=== PATIENT | female | born 1980 | race Caucasian/White ===

== ENCOUNTER 2018-10-12 09:48 | Inpatient (IN) ==
[2018-10-12] MEDS ORDERED: Morphine Inj 4 MG/ML Vial IV.PUSH ONE ×2 (10:20→15:15)
[2018-10-12] MEDS ORDERED: Sod Chloride 0.9% Inj 1,000 ML IV.SIG ONE (10:20)
--- NOTE | 2018-10-12 10:23 | ED ---
HPI General Chief Complaint: Abdominal Pain Stated Complaint: Chest Pain Time Seen by Provider: 10/12/18 10:14 Source: patient Mode of arrival: ambulatory Limitations: no limitations History of Present Illness HPI narrative: 38-year-old female presents for evaluation of 4 days of epigastric burning and nausea. Patient states that she is feels a burning in her epigastrium which radiates to her chest particularly with burping. She has had minimal p.o. intake over the past 4 days. MD complaint: Reports abdominal pain Onset (ago): day(s) (4) Pain Consistency: constant Location: Reports epigastric Severity: severe Quality: Reports stabbing Radiation: Reports chest Migration to: Reports no migration Relieving factors: nothing Exacerbating factors: eating Context: Denies sick contacts, recent antibiotic use, recent surgery/procedure, recent injury and history of similar episodes Associated symptoms: Reports nausea and vomiting; Denies diarrhea, fever, chills and constipation Related Data Home Medications Medication Instructions Recorded Confirmed No Known Home Medications 10/12/18 10/12/18 Allergies Allergy/AdvReac Type Severity Reaction Status Date / Time acetaminophen AdvReac Intermediate Nausea/Vomi Verified 05/26/18 16:36 ting *MDRO Multi-Drug Resistant AdvReac Unknown MRSA Uncoded 05/26/18 16:36 Organism Review of Systems ROS: all other systems reviewed are negative [facility] Social History Social History Substance History: Active Abuse Second Hand Smoke Exposure: Yes Smoking Status: Current every day smoker Tobacco Type: Cigarettes How Often Do You Have a Drink Containing Alcohol: Monthly or less Recent Travel in [facility] within the Last 8 Weeks: No Recent Out of Country Travel within the Last 8 Weeks: No Substance Abuse Detail Marijuana: Substance Use Status: Active Route Used Substance Abuse: By Mouth and Inhalation Immunization History Tetanus Immunization: Unsure Exam Narrative Exam Narrative: GENERAL: Awake, alert, and pain SKIN: Focused skin assessment warm/dry. HEAD: Atraumatic. Normocephalic. EYES: Pupils equal and round. No scleral icterus. No injection or drainage. ENT: No nasal bleeding or discharge. Mucous membranes pink and moist. NECK: Trachea midline. No JVD. CARDIOVASCULAR: Regular rate and rhythm. No murmur appreciated. RESPIRATORY: No accessory muscle use. Clear to auscultation. Breath sounds equal bilaterally. GASTROINTESTINAL: Abdomen soft, tender to palpation in right upper quadrant and epigastrium, nondistended. Hepatic and splenic margins not palpable. MUSCULOSKELETAL: No obvious deformities. No clubbing. No cyanosis. No edema. NEUROLOGICAL: Awake and alert. No obvious cranial nerve deficits. Motor grossly within normal limits. Normal speech. PSYCHIATRIC: Appropriate mood and affect; insight and judgment normal. Course Initial Documented Vital Signs Temperature 98.1 F 10/12/18 09:50 Pulse Rate 80 10/12/18 09:50 Respiratory Rate 22 10/12/18 09:50 Blood Pressure 136/84 10/12/18 09:50 Pulse Oximetry 100 10/12/18 09:50 Last Documented Vital Signs Temperature 98.1 F 10/12/18 09:50 Pulse Rate 76 10/12/18 09:53 Respiratory Rate 16 10/12/18 09:53 Blood Pressure 140/87 10/12/18 09:53 Pulse Oximetry 100 10/12/18 09:53 Medical Decision Making [facility] Narrative Medical decision making narrative: 38-year-old female presents for evaluation of epigastric pain, nausea, inability to tolerate p.o for 4 days. Patient tender to palpation in the right upper quadrant. Symptoms could represent pancreatitis, cholecystitis, hepatitis. We will check right upper quadrant ultrasound, LFTs, CBC, BMP. Total bilirubin elevated at 6.1. AST elevated at 516, ALT 1052. Patient with persistent nausea and unable to tolerate p.o. Will admit to medicine. Medical Screen Exam Complete: Yes Emergency Medical Condition: Yes Lab Data Result diagrams: 10/12/18 10:45 10/12/18 10:45 POC Results POC Urine Results Negative Lab Results 10/12/18 10/12/18 Range/Units 10:45 10:45 WBC 8.4 (4.0-11.0) th/mm3 RBC 4.79 (4.00-5.30) mil/mm3 Hgb 9.5 L (11.6-15.3) gm/dL Hct 30.0 L (35.0-46.0) % MCV 62.7 L (80.0-100.0) fL MCH 19.9 L (27.0-34.0) pg MCHC 31.8 L (32.0-36.0) % RDW 20.6 H (11.6-17.2) % Plt Count 399 (150-450) th/mm3 MPV 9.5 (7.0-11.0) fL Prelim Diff (Auto) Manual diff required WBC Differential Manual diff final Seg Neuts % (Manual) 57 (16-70) % Band Neuts % (Manual) 3 (0-6) % Lymphocytes % (Manual) 28 (9-44) % Monocytes % (Manual) 11 H (0-8) % Basophils % (Manual) 1 (0-2) % Abs Neuts (Manual) 5.0 (1.8-7.7) th/mm3 Differential Comment . Platelet Estimate Normal (Normal) Platelet Morphology Normal (Normal) Target Cells 1+ H (None) Tear Drop Cells 1+ H (None) Ovalocytes 1+ H (None) Stomatocytes 1+ H (None) Sodium 134 L (136-145) meq/L Potassium 3.4 L (3.5-5.1) meq/L Chloride 99 (98-107) meq/L Carbon Dioxide 26.9 (21.0-32.0) meq/L Anion Gap 8 (5-15) meq/L BUN 11 (7-18) mg/dL Creatinine 0.77 (0.50-1.00) mg/dL Estimated GFR 84 L (>89) mL/min Random Glucose 97 (74-106) mg/dL Calcium 8.6 (8.5-10.1) mg/dL Magnesium 2.1 (1.5-2.5) mg/dL Total Bilirubin 6.1 H (0.2-1.0) mg/dL AST 516 H (15-37) U/L ALT 1052 H (10-53) U/L Alkaline Phosphatase 483 H (45-117) U/L Total Protein 8.9 H (6.4-8.2) g/dL Albumin 3.2 L (3.4-5.0) g/dL Lipase 128 (73-393) U/L Imaging Data Radiologist's impression: Chest X-Ray 10/12/18 10:20 CONCLUSION: The lungs are clear. Gallbladder Ultrasound 10/12/18 10:20 CONCLUSION: 1. Nonobstructing renal calculus on the right. 2. No acute abnormality. In particular, the gallbladder is decompressed. Discharge Plan Discharge Order Discharge Orders: ED Use Only Admit Order (Routine); Ordered 10/12/18 Ordered By: Norma Santos Physicians Team ED Provider: Norma Santos Primary Care Provider: Primary Care Blanche Lawrence Rxs /Orders / Referrals /Forms Prescriptions: No Action No Known Home Medications RF: 0 Discharge Interventions Interventions: Vital Signs Last Done: 10/12/18 09:53 Status ED Status: With Doctor
[2018-10-12 10:55] LABS: Hemoglobin 9.5 gm/dL (11.6-15.3); Mean Corpuscular HGB Conc 31.8 % (32.0-36.0); Mean Corpuscular Hemoglobin 19.9 pg (27.0-34.0); Mean Corpuscular Volume 62.7 fL (80.0-100.0); Mean Platelet Volume 9.5 fL (7.0-11.0); Platelet Count 399 th/mm3 (150-450); Red Blood Count 4.79 mil/mm3 (4.00-5.30); Red Cell Distribution Width 20.6 % (11.6-17.2); White Blood Count 8.4 th/mm3 (4.0-11.0)
[2018-10-12 11:20] LABS: Alanine Aminotransferase 1052 U/L (10-53); Alkaline Phosphatase 483 U/L (45-117); Total Protein 8.9 g/dL (6.4-8.2)
[2018-10-12 11:22] LABS: Albumin 3.2 g/dL (3.4-5.0); Anion Gap 8 meq/L (5-15); Aspartate Aminotransferase 516 U/L (15-37); Blood Urea Nitrogen 11 mg/dL (7-18); Calcium 8.6 mg/dL (8.5-10.1); Carbon Dioxide 26.9 meq/L (21.0-32.0); Chloride 99 meq/L (98-107); Glomerular Filtration Rate 84 mL/min (>89); Glucose,Random 97 mg/dL (74-106); Lipase 128 U/L (73-393); Magnesium 2.1 mg/dL (1.5-2.5); Potassium 3.4 meq/L (3.5-5.1); Sodium 134 meq/L (136-145)
--- NOTE | 2018-10-12 11:23 | US ---
EXAM DATE: 10/12/2018 11:11 AM EST AGE/SEX: 38 years / Female INDICATIONS: Epigastric pain and nausea. CLINICAL DATA: This is the patient's initial encounter. Patient reports that signs and symptoms have been present for 4 - 6 days and indicates a pain score of 6/10. MEDICAL/SURGICAL HISTORY: . Epigastric pain and nausea. section. [place] [facility] [place]26/2015. . MEASUREMENTS: Liver:__ 16.7 cm. Common Bile Duct:__ 5mm. FINDINGS: Liver: Normal echogenicity without focal lesion or ductal dilatation. Portal Vein: Hepatopedal flow seen in portal vein. Common Duct: No intraluminal mass or stone visualized. Gallbladder: The gallbladder is decompressed and poorly evaluated. No discrete stones or sludge obse rved. No pericholecystic fluid. Pancreas: The visualized portions are within normal limits. A couple of tiny punctate calcification seen involving the pancreatic body. Right Kidney: Normal echogenicity and cortical thickness. No mass or hydronephrosis. There is a 1 cm stone involving the upper pole. Other: None. CONCLUSION: 1. Nonobstructing renal calculus on the right. 2. No acute abnormality. In particular, the gallbladder is decompressed. Electronically signed by: Johnathon Fong MD Board Certified Radiologist 10/12/2018 11:22 AM EST
--- NOTE | 2018-10-12 11:25 | XR ---
EXAM DATE: 10/12/2018 11:23 AM EST AGE/SEX: 38 years / Female INDICATIONS: Chest pain. CLINICAL DATA: This is the patient's initial encounter. Patient reports that signs and symptoms have been present for 1 day and indicates a pain score of 5/10. MEDICAL/SURGICAL HISTORY: None. urine test negative None. COMPARISON: [facility] – [place] SINGLE AP, 08/17/2015. . FINDINGS: A single AP view of the chest demonstrates the lungs to be symmetrically aerated without evidence of mass, infiltrate or effusion. The cardiomediastinal contours are unremarkable. Osseous structures a re intact. CONCLUSION: The lungs are clear. Electronically signed by: Johnathon Henderson MD Board Certified Radiologist 10/12/2018 11:24 AM EST
[2018-10-12 11:42] LABS: Lymphocytes 28 % (9-44); Monocytes 11 % (0-8); Stomatocytes 1+; Tear Drop Cells 1+
[2018-10-12 11:43] LABS: Ovalocytes 1+; Platelet Estimate Normal (Normal); Platelet Morphology Normal (Normal); Target Cells 1+
[2018-10-12] MEDS ORDERED: Bisacodyl 10 MG Supp RECTAL PRN (13:19)
[2018-10-12] MEDS ORDERED: Acetaminophen 325 MG Tablet PO PRN (13:19)
[2018-10-12 14:25] LABS: Amorphous Sediment,Urine Occasional /hpf; Bacteria,Urine Many /hpf; Bilirubin,Urine Moderate (Negative); Clarity,Urine Hazy (Clear); Color,Urine Amber (Yellw/Straw); Glucose,Urine (UA) Negative (Negative); Leukocyte Esterase,Urine Trace (Negative); Mucus,Urine Many /lpf (Occasional); Nitrite,Urine Positive (Negative); Specific Gravity,Urine 1.017 (1.002-1.035); Squamous Epithelial Cell,Urine 12 /hpf (0-5)
[2018-10-12 14:26] LABS: Ictotest,Urine Positive (Negative); Urobilinogen,Urine 0.2 mg/dL (Less than 2)
--- NOTE | 2018-10-12 14:58 | P.HPIM ---
History of Present Illness Primary Care Physician: No Primary Care Physician Chief Complaint: abdominal pain History of Present Illness: 38-year-old female with h/o IVDA presents for evaluation of 4 days of severe epigastric, burning and associate nausea. The pain is worse with eating. Patient states that she is feels a burning in her epigastrium which radiates to her chest particularly with burping. She has had minimal p.o. intake over the past 4 days. Patient with nausea and unable to tolerate po intake. No fever or chills. Denies sick contacts, recent antibiotic use, recent surgery/procedure, recent injury and history of similar episodes Denies diarrhea, fever, chills or constipation. Review of Systems Review of Systems: all other systems reviewed are negative [facility] Medical History Medical History IVDA (intravenous drug abuse) complicating (Acute) Surgical History Surgical History Previous section (Acute) Family History Family History Other Diabetes Social History Social History Substance History: Active Abuse Second Hand Smoke Exposure: No Smoking Status: Current some day smoker Tobacco Type: Cigarettes How Often Do You Have a Drink Containing Alcohol: Monthly or less Recent Travel in [facility] within the Last 8 Weeks: No Recent Out of Country Travel within the Last 8 Weeks: No Substance Abuse Detail Marijuana: Substance Use Status: Active Route Used Substance Abuse: Inhalation Reason for Use: Calm Down Immunization History Tetanus Immunization: Unsure Medications and Allergies Allergies Allergy/AdvReac Type Severity Reaction Status Date / Time acetaminophen AdvReac Intermediate Nausea/Vomi Verified 05/26/18 16:36 ting *MDRO Multi-Drug Resistant AdvReac Unknown MRSA Uncoded 05/26/18 16:36 Organism Home Medications Medication Instructions Recorded Confirmed Type No Known Home Medications 10/12/18 10/12/18 History Active Medications: Active Medications Acetaminophen (Tylenol) 650 mg PO Q4H PRN PRN Reason: Temp > 100.4 Al Hydroxide/Mg Hydroxide (Milk Of Magnesia Liq) 30 ml PO Q12H PRN PRN Reason: Mild Constipation Bisacodyl (Dulcolax Supp) 10 mg RECTAL DAILY PRN PRN Reason: SEVERE CONSITIPATION Enoxaparin Sodium (Lovenox Inj) 40 mg SQ Q24H MICHAEL Sodium Chloride (Ns Inj) 1,000 mls @ 100 mls/hr IV.CONT .Q10H MICHAEL Lactulose (Lactulose Liq) 30 ml PO DAILY PRN PRN Reason: SEVERE CONSITIPATION Ondansetron HCl (Zofran Inj) 4 mg IV.PUSH Q6H PRN PRN Reason: NAUSEA OR VOMITING Senna/Docusate Sodium (Carmita-Colace) 1 tab PO BID MICHAEL Sennosides (Senokot) 17.2 mg PO Q12H PRN PRN Reason: Moderate Constipation Sodium Chloride (Ns Flush) 2 ml IV.FLUSH BID MICHAEL Sodium Chloride (Ns Flush) 2 ml IV.FLUSH PRN PRN PRN Reason: FLUSH AFTER USING IV ACCESS Physical Exam Vital signs: Vital Signs 10/12/18 09:50 10/12/18 09:53 10/12/18 13:26 Temperature 98.1 F Pulse Rate 80 76 Respiratory Rate 22 16 Blood Pressure 136/84 140/87 Pulse Oximetry 100 100 100 10/12/18 13:30 Temperature Pulse Rate 82 Respiratory Rate 22 Blood Pressure 115/74 Pulse Oximetry Intake & Output 10/11/18 10/12/18 10/12/18 18:59 06:59 18:59 Intake Total 1000 / 1000 Balance 1000 / 1000 Weight 47.627 kg Intake: IV 1000 / 1000 NS Inj 1,000 ML @ Wide Open IV. 1000 / 1000 SIG BOLUS ONE Rx#:[id number] Other: Weight On Admission 47.627 kg Narrative: GENERAL: 38 yo female appears weak but not in severe distress. SKIN: Warm and dry. HEAD: Atraumatic. Normocephalic. EYES: Pupils equal and round. No scleral icterus. No injection or drainage. ENT: No nasal bleeding or discharge. Mucous membranes pink and moist. NECK: Trachea midline. No JVD. CARDIOVASCULAR: Regular rate and rhythm. RESPIRATORY: No accessory muscle use. Clear to auscultation. Breath sounds equal bilaterally. GASTROINTESTINAL: Abdomen soft, mild epigastric tenderness, nondistended. Hepatic and splenic margins not palpable. MUSCULOSKELETAL: Extremities without clubbing, cyanosis, or edema. No obvious deformities. NEUROLOGICAL: Awake and alert. No obvious cranial nerve deficits. Motor grossly within normal limits. Five out of 5 muscle strength in the arms and legs. Normal speech. PSYCHIATRIC: Appropriate mood and affect; insight and judgment normal. Results Labs CBC & Chem 7: 10/12/18 10:45 10/12/18 10:45 Imaging Impressions Chest X-Ray 10/12/18 10:20 CONCLUSION: The lungs are clear. Gallbladder Ultrasound 10/12/18 10:20 CONCLUSION: 1. Nonobstructing renal calculus on the right. 2. No acute abnormality. In particular, the gallbladder is decompressed. Caprini VTE Risk Assessment Caprini VTE Risk Assessment: Moderate/High Risk (score >= 2) Caprini Risk Assessment Model: Point Value = 1 Point Value = 2 Point Value = 3 Point Value = 5 Age 41-60 Minor surgery BMI > 25 kg/m2 Swollen legs Varicose veins or History of unexplained or recurrent spontaneous Oral contraceptives or hormone replacement Sepsis (< 1 month) Serious lung disease, including pneumonia (< 1 month) Abnormal pulmonary function Acute myocardial infarction Congestive heart failure (< 1 month) History of inflammatory bowel disease Medical patient at bed rest Age 61-74 Arthroscopic surgery Major open surgery (> 45 min) Laparoscopic surgery (> 45 min) Malignancy Confined to bed (> 72 hours) Immobilizing plaster cast Central venous access Age >= 75 History of VTE Family history of VTE Factor V Leiden Prothrombin [id number] Lupus anticoagulant Anticardiolipin antibodies Elevated serum homocysteine Heparin-induced thrombocytopenia Other congenital or acquired thrombophilia Stroke (< 1 month) Elective arthroplasty Hip, pelvis, or leg fracture Acute spinal cord injury (< 1 month) Prophylaxis Regimen: Total Risk Factor Score Risk Level Prophylaxis Regimen 0-1 Low Early ambulation 2 Moderate Order ONE of the following: *Sequential Compression Device (SCD) *Heparin 5000 units SQ BID 3-4 Higher Order ONE of the following medications: *Heparin 5000 units SQ TID *Enoxaparin/Lovenox 40 mg SQ daily (WT < 150 kg, CrCl > 30 mL/min) *Enoxaparin/Lovenox 30 mg SQ daily (WT < 150 kg, CrCl > 10-29 mL/min) *Enoxaparin/Lovenox 30 mg SQ BID (WT < 150 kg, CrCl > 30 mL/min) AND/OR *Sequential Compression Device (SCD) 5 or more Highest Order ONE of the following medications: *Heparin 5000 units SQ TID (Preferred with Epidurals) *Enoxaparin/Lovenox 40 mg SQ daily (WT < 150 kg, CrCl > 30 mL/min) *Enoxaparin/Lovenox 30 mg SQ daily (WT < 150 kg, CrCl > 10-29 mL/min) *Enoxaparin/Lovenox 30 mg SQ BID (WT < 150 kg, CrCl > 30 mL/min) AND *Sequential Compression Device (SCD) Assessment and Plan Plan 38 yo F with epigastric abd pain , nausea and vomiting unable to keep PO intake Epigastric abd pain , nausea and vomiting unable to keep PO intake Transaminitis H/o IVDU Counselled Advance diet as tolerated Antiemetics as need pain meds as need pantoprazole pain meds as need Consult GI DVT ppx scd/teds H&P: Quality VTE Deep Vein Thrombosis/Pulmonary Embolism Present on Admission: No
[2018-10-12] MEDS ORDERED: Pantoprazole Inj 40 MG Vial IV.PUSH ONE (15:00)
[2018-10-12] MEDS ORDERED: Morphine Inj 4 MG/ML Vial IV.PUSH PRN (15:00)
[2018-10-12] MEDS: Enoxaparin Inj 40 MG/0.4 ML Syringe SQ SCH (15:47)
[2018-10-12] MEDS: Sod Chloride 0.9% Inj 1,000 ML IV.CONT SCH (15:49)
--- NOTE | 2018-10-12 17:33 | P.CONGI ---
History of Present Illness Consult date: 10/12/18 Consult reason: Epigastric pain Chief complaint: Nausea,vomiting chest/abd pain History of Present Illness: Patient is a 38-year-old female with past medical history of IV drug use. Surgical history includes x3. Patient presented to [facility] emergency room with complaint of epigastric burning with associated nausea. Patient states onset 4 days. Patient denies fever or chills. Upon consultation, patient noted to report frequent nausea and vomiting over the last 4 days. States urine dark tea colored. Patient endorses alcohol use socially, 2-3 cigarettes daily. She does endorse IV drug use; stating she uses cocaine, methamphetamines and heroin 3-4 times weekly and has been doing so over the last 3-4 years. Patient also endorses use of marijuana daily. Our service has been consulted to evaluate patient for epigastric pain in the presence of transaminitis. Review of Systems All other systems reviewed negative except as stated in HPI PMFSH - History History Provided By: Patient - Medical History Medical History: Medical History (Last Updated 10/12/18 @ 16:31 by Dana Bravo MD) IVDA (intravenous drug abuse) complicating - Surgical History Surgical History: Surgical History (Last Reviewed 10/12/18 @ 14:47 by Dana Bravo MD) Previous section - Family History Family History: Family History (Last Reviewed 10/12/18 @ 14:47 by Dana Bravo MD) Other Diabetes - Tobacco History Second Hand Smoke Exposure: No Tobacco Use In Past 30 Days: Yes Smoking Status: Current some day smoker Tobacco Type: Cigarettes - Alcohol History How Often Do You Have a Drink Containing Alcohol: Monthly or less - Substance Use History Substance History: Active Abuse - Substance Use Type Marijuana Status: Active Route Used: Inhalation Reason for Use: Calm Down - Travel History Recent Travel in the [place] Within the Last 8 Weeks: No Recent Travel Out of the Country Within the Last 8 Weeks: No - Immunization History Tetanus Immunization: Unsure Medications and Allergies Active Medications: Active Medications Al Hydroxide/Mg Hydroxide (Milk Of Magnmaria Liq) 30 ml PO Q12H PRN PRN Reason: Mild Constipation Bisacodyl (Dulcolax Supp) 10 mg RECTAL DAILY PRN PRN Reason: SEVERE CONSITIPATION Enoxaparin Sodium (Lovenox Inj) 40 mg SQ Q24H [facility] Last Admin: 10/12/18 15:47 Dose: 40 mg Sodium Chloride (Ns Inj) 1,000 mls @ 100 mls/hr IV.CONT .Q10H [facility] Last Admin: 10/12/18 15:49 Dose: 100 mls/hr Lactulose (Lactulose Liq) 30 ml PO DAILY PRN PRN Reason: SEVERE CONSITIPATION Morphine Sulfate (Morphine Inj) 2 mg IV.PUSH Q8H PRN PRN Reason: pain 2-10 Ondansetron HCl (Zofran Inj) 4 mg IV.PUSH Q6H PRN PRN Reason: NAUSEA OR VOMITING Pantoprazole Sodium (Protonix) 20 mg PO DAILY [facility] Senna/Docusate Sodium (Carmita-Colace) 1 tab PO BID [facility] Sennosides (Senokot) 17.2 mg PO Q12H PRN PRN Reason: Moderate Constipation Sodium Chloride (Ns Flush) 2 ml IV.FLUSH BID [facility] Sodium Chloride (Ns Flush) 2 ml IV.FLUSH PRN PRN PRN Reason: FLUSH AFTER USING IV ACCESS Allergies Allergy/AdvReac Type Severity Reaction Status Date / Time acetaminophen AdvReac Intermediate Nausea/Vomi Verified 05/26/18 16:36 ting *MDRO Multi-Drug Resistant AdvReac Unknown MRSA Uncoded 05/26/18 16:36 Organism Home Medications Medication Instructions Recorded Confirmed Type No Known Home Medications 10/12/18 10/12/18 History Exam Vital signs: Vital Signs 10/12/18 09:50 10/12/18 09:53 10/12/18 13:26 Temperature 98.1 F Pulse Rate 80 76 Respiratory Rate 22 16 Blood Pressure 136/84 140/87 Pulse Oximetry 100 100 100 10/12/18 13:30 10/12/18 16:00 Temperature 98.8 F Pulse Rate 82 77 Respiratory Rate 22 17 Blood Pressure 115/74 111/71 Pulse Oximetry 99 Intake & Output 10/11/18 10/12/18 10/12/18 18:59 06:59 18:59 Intake Total 1000 / 1000 Balance 1000 / 1000 Weight 47.627 kg Intake: IV 1000 / 1000 NS Inj 1,000 ML @ Wide Open IV. 1000 / 1000 SIG BOLUS ONE Rx#:[id number] Other: Weight On Admission 47.627 kg - Constitutional no acute distress, thin, cooperative - Routine HEENT Exam Eye: Present: conjunctival icterus ENT: Present: mucous membranes moist - Routine Neck Exam Present: supple - Routine Respiratory Exam Present: CTA bilaterally. Absent: accessory muscle use - Routine Cardiovascular Exam Present: RRR - Routine Abdominal Exam Present: soft, normoactive bowel sounds. Absent: tenderness, distended, guarding, firm, organomegaly - Routine Extremities Exam Present: pulses intact. Absent: edema - Routine Skin Exam Present: dry, warm, jaundice - Routine Neurological Exam Present: alert, oriented X3 Results - Labs CBC & Chem 7: 10/12/18 10:45 10/12/18 10:45 Labs: Laboratory Results - last 24 hr 10/12/18 10/12/18 10/12/18 10:45 10:45 14:00 WBC 8.4 RBC 4.79 Hgb 9.5 L Hct 30.0 L MCV 62.7 L MCH 19.9 L MCHC 31.8 L RDW 20.6 H Plt Count 399 MPV 9.5 Prelim Diff (Auto) Manual diff required WBC Differential Manual diff final Seg Neuts % (Manual) 57 Band Neuts % (Manual) 3 Lymphocytes % (Manual) 28 Monocytes % (Manual) 11 H Basophils % (Manual) 1 Abs Neuts (Manual) 5.0 Differential Comment . Platelet Estimate Normal Platelet Morphology Normal Target Cells 1+ H Tear Drop Cells 1+ H Ovalocytes 1+ H Stomatocytes 1+ H Sodium 134 L Potassium 3.4 L Chloride 99 Carbon Dioxide 26.9 Anion Gap 8 BUN 11 Creatinine 0.77 Estimated GFR 84 L Random Glucose 97 Calcium 8.6 Magnesium 2.1 Total Bilirubin 6.1 H AST 516 H ALT 1052 H Alkaline Phosphatase 483 H Total Protein 8.9 H Albumin 3.2 L Lipase 128 Urine Color Kimmy Urine Clarity Hazy H Urine pH 6.0 Ur Specific Bannister 1.017 Urine Protein 100 H Urine Glucose (UA) Negative Urine Ketones Trace H Urine Occult Blood Large H Urine Nitrate Positive H Urine Bilirubin Moderate H Urine Ictotest Positive H Urine Urobilinogen 0.2 Ur Leukocyte Esterase Trace H Urine RBC 17 H Urine WBC 9 H Ur Squamous Epith Cells 12 Amorphous Sediment Occasional H Urine Bacteria Many H Urine Mucus Many H Micro UA Comment Culture indicated Ur Microscopic Review Not Reportable Urine Culture Comments Culture indicated - Imaging Impressions Chest X-Ray 10/12/18 10:20 CONCLUSION: The lungs are clear. Gallbladder Ultrasound 10/12/18 10:20 CONCLUSION: 1. Nonobstructing renal calculus on the right. 2. No acute abnormality. In particular, the gallbladder is decompressed. Assessment and Plan (1) Elevated liver function tests Status: Acute Code(s): R94.5 - Abnormal results of liver function studies - Plan Patient is a 38-year-old female with past medical history of IV drug use. Surgical history includes x3. Patient presented to [facility] emergency room with complaint of epigastric burning with associated nausea. Patient states onset 4 days. Patient denies fever or chills. Upon consultation, patient noted to report frequent nausea and vomiting over the last 4 days. States urine dark tea colored. Patient endorses alcohol use socially, 2-3 cigarettes daily. She does endorse IV drug use; stating she uses cocaine, methamphetamines and heroin 3-4 times weekly and has been doing so over the last 3-4 years. Patient also endorses use of marijuana daily. Our service has been consulted to evaluate patient for epigastric pain in the presence of transaminitis. Transaminitis with epigastric pain-rule out hepatitis, hepatic ischemia 4-day onset of epigastric pain patient describes as sharp and constant. Reports associated nausea with dark tea colored urine. Denies radiation of pain. Denies alleviating or aggravating factors. Patient does endorse current IV drug use. -Total bilirubin 6.1 AST 516 ALT 1052 alk phos 43 lipase 128 -WBC 8.4 hemoglobin 9.5 hematocrit 30.0 Plan -Regular diet -Analgesics and antiemetics as per attending -Avoid hepatotoxins -MRCP -Pantoprazole daily -Hepatitis panel -Liver immunology -IV hydration -Supportive care -Further recommendations to follow This patient has been seen by myself and and this note is written on his behalf - Attending Attestation Dr. Rogel
[2018-10-12] MEDS: Senna/Docusate Sodium 8.6/50 MG Tablet PO SCH (21:27)
[2018-10-12 21:48] LABS: % Iron Saturation 7.9 % (20-50)
[2018-10-12 21:51] LABS: Alpha Fetoprotein Tumor Marker 1.9 ng/mL (0.5-8.0)
[2018-10-12 23:11] LABS: Hepatitits B Surface Antigen Nonreactive (Nonreactive)
[2018-10-12 23:35] LABS: Hepatitis A IgM Antibody Reactive (Nonreactive)
[2018-10-13] MEDS: Sod Chloride 0.9% Inj 1,000 ML IV.CONT SCH ×3 (01:10→23:07)
[2018-10-13 07:37] LABS: Hematocrit 25.3 % (35.0-46.0); Hemoglobin 8.4 gm/dL (11.6-15.3); Mean Corpuscular HGB Conc 33.1 % (32.0-36.0); Mean Corpuscular Hemoglobin 20.9 pg (27.0-34.0); Mean Corpuscular Volume 63.3 fL (80.0-100.0); Mean Platelet Volume 8.8 fL (7.0-11.0); Platelet Count 328 th/mm3 (150-450); Red Blood Count 3.99 mil/mm3 (4.00-5.30); Red Cell Distribution Width 20.8 % (11.6-17.2); White Blood Count 5.4 th/mm3 (4.0-11.0)
[2018-10-13 08:02] LABS: Anion Gap 7 meq/L (5-15); Blood Urea Nitrogen 7 mg/dL (7-18); Calcium 7.9 mg/dL (8.5-10.1); Chloride 105 meq/L (98-107); Glomerular Filtration Rate Greater Than 89 mL/min (>89); Glucose,Random 87 mg/dL (74-106); Potassium 3.4 meq/L (3.5-5.1); Sodium 138 meq/L (136-145)
[2018-10-13 08:05] LABS: Albumin 2.4 g/dL (3.4-5.0)
[2018-10-13 08:16] LABS: Total Protein 6.9 g/dL (6.4-8.2)
[2018-10-13 08:28] LABS: Lymphocytes 32 % (9-44); Monocytes 7 % (0-8)
[2018-10-13 08:29] LABS: Ovalocytes 1+; Platelet Estimate Normal (Normal); Platelet Morphology Normal (Normal); Target Cells 1+
[2018-10-13] MEDS: Pantoprazole Sodium 20 MG DR Tablet PO SCH (09:17)
[2018-10-13] MEDS: Senna/Docusate Sodium 8.6/50 MG Tablet PO SCH ×2 (09:17→22:55)
--- NOTE | 2018-10-13 12:26 | MR ---
EXAM DATE: 10/13/2018 11:26 AM EST AGE/SEX: 38 years / Female INDICATIONS: Abdominal pain. CLINICAL DATA: This is the patient's initial encounter. Patient reports that signs and symptoms have been present for 1 day and indicates a pain score of 0/10. MEDICAL/SURGICAL HISTORY: None. section. COMPARISON: [facility] [place]EL[place]/O CONTRAST, 04/26/2015. [facility] [place] GALLBLAD[place], . . TECHNIQUE: Multiplanar, multisequence images of the abdomen were obtained without contrast including dedicated cholangiographic images. FINDINGS: Liver: The liver is homogeneous and normal in signal intensity with no focal defects. Intrahepatic Bile Ducts: There is no intrahepatic biliary ductal dilatation. Common Bile Duct: The common bile duct is normal in caliber, measuring 4 mm. No filling defects or o bstructing lesions are identified. Gallbladder: Abnormal. There is a changed appearance to the gallbladder when compared to yesterday's ultrasound. The gallbladder remains contracted without intraluminal filling defects or gallbladder w all thickening. There is interval development of a significant amount of pericholecystic fluid, and t here is some fluid which tracks along the inferior margin of the liver into the falciform ligament. Pancreas: Normal size. The portion of the pancreatic duct identified in the head and mid body is nor mal dimension. CONCLUSION: 1. Abnormal appearance to the gallbladder fossa with a contracted gallbladder and significant perich olecystic fluid which tracks towards the falciform ligament. The common bile duct is normal dimension . No intraluminal filling defects seen. The findings do suggest acute cholecystitis. 2. No dilation of the visualized portions of the pancreatic duct. Electronically signed by: Johnathon Henderson MD Board Certified Radiologist 10/13/2018 12:25 PM EST
[2018-10-13] MEDS: Enoxaparin Inj 40 MG/0.4 ML Syringe SQ SCH (13:34)
--- NOTE | 2018-10-13 14:51 | ECG ---
Date Performed: 10/12/2018 Time Performed: 11:39:18 PTAGE: 38 years EKG: Sinus rhythm NORMAL ECG Since the previous tracing, no significant change noted NO PREVIOUS TRACING DOCTOR: Ana M Meehan Interpretating Date/Time 10/13/2018 14:44:15
--- NOTE | 2018-10-13 15:09 | P.PNIM ---
Subjective Interval history: In the bed appears tired. With some nausea however not vomiting. Not able to eat much. Plan for MRCP per GI. Patient pain is better controlled. No diarrhea. No fever or chills. Physical Exam Vital signs: Vital Signs 10/12/18 16:00 10/12/18 20:00 10/12/18 23:51 Temperature 98.8 F 98 F 99.3 F Pulse Rate 77 75 82 Respiratory Rate 17 12 18 Blood Pressure 111/71 107/68 118/73 Pulse Oximetry 99 100 99 10/13/18 04:00 10/13/18 07:28 10/13/18 08:00 Temperature 98.8 F 96.8 F L Pulse Rate 77 70 Respiratory Rate 16 18 14 Blood Pressure 112/75 101/62 Pulse Oximetry 99 97 10/13/18 11:27 Temperature 98.5 F Pulse Rate 73 Respiratory Rate 18 Blood Pressure 94/69 L Pulse Oximetry 96 Intake & Output 10/12/18 10/13/18 10/13/18 18:59 06:59 18:59 Intake Total 1000 / 1000 1000 / 1000 1900 / 1900 Balance 1000 / 1000 1000 / 1000 1900 / 1900 Weight 47.627 kg Intake: IV 1000 / 1000 1000 / 1000 1900 / 1900 NS Inj 1,000 ML @ 100 mls/hr IV 1000 / 1000 1900 / 1900 .CONT .Q10H [facility] Rx#:[id number] NS Inj 1,000 ML @ Wide Open IV. 1000 / 1000 SIG BOLUS ONE Rx#:[id number] Other: Date of Last Bowel Movement 10/11/18 10/11/18 Weight On Admission 47.627 kg Narrative: GENERAL: 38 yo female appears weak but not in severe distress. CARDIOVASCULAR: Regular rate and rhythm. RESPIRATORY: No accessory muscle use. Clear to auscultation. Breath sounds equal bilaterally. GASTROINTESTINAL: Abdomen soft, mild epigastric tenderness, nondistended. Hepatic and splenic margins not palpable. MUSCULOSKELETAL: Extremities without clubbing, cyanosis, or edema. No obvious deformities. NEUROLOGICAL: Awake and alert. No obvious cranial nerve deficits. Motor grossly within normal limits. Five out of 5 muscle strength in the arms and legs. Normal speech. PSYCHIATRIC: Appropriate mood and affect; insight and judgment normal. Results Labs CBC & Chem 7: 10/13/18 07:14 10/13/18 07:14 Labs: Microbiology 10/12/18 14:00 Clean Catch Urine Urine Culture - Preliminary gram negative rods Imaging Imaging: Impressions Cholangiopancreatography MRI 10/13/18 17:25 CONCLUSION: 1. Abnormal appearance to the gallbladder fossa with a contracted gallbladder and significant pericholecystic fluid which tracks towards the falciform ligament. The common bile duct is normal dimension. No intraluminal filling defects seen. The findings do suggest acute cholecystitis. 2. No dilation of the visualized portions of the pancreatic duct. Assessment and Plan (1) Elevated liver function tests: Code(s): R94.5 - Abnormal results of liver function studies Status: Acute Plan 38 yo F with epigastric abd pain , nausea and vomiting unable to keep PO intake Epigastric abd pain , nausea and vomiting unable to keep PO intake Transaminitis r/o hep , panel ordered on admission and pending H/o IVDU Counselled regarding IVDU, last use of Heroin 2 days SNOW REMOVAL/PLOWING Advance diet as tolerated Antiemetics as need pain meds as need pantoprazole pain meds as need Consult GI, appreciate recs. Plan for MRCP DVT ppx scd/teds Discussed with the patient, nurse DC plan : DC when improved and cleared by GI Progress Note: Quality VTE Deep Vein Thrombosis/Pulmonary Embolism Present on Admission: No
[2018-10-13] MEDS: Morphine Inj 4 MG/ML Vial IV.PUSH PRN ×2 (18:47→23:06)
--- NOTE | 2018-10-13 19:25 | P.PNGI ---
Subjective Interval history: Patient awake and alert Sitting up in bed Reports she is hungry Post MRCP Physical Exam Vital signs: Vital Signs 10/12/18 20:00 10/12/18 23:51 10/13/18 04:00 Temperature 98 F 99.3 F 98.8 F Pulse Rate 75 82 77 Respiratory Rate 12 18 16 Blood Pressure 107/68 118/73 112/75 Pulse Oximetry 100 99 99 10/13/18 07:28 10/13/18 08:00 10/13/18 11:27 Temperature 96.8 F L 98.5 F Pulse Rate 70 73 Respiratory Rate 18 14 18 Blood Pressure 101/62 94/69 L Pulse Oximetry 97 96 10/13/18 17:11 Temperature 98.6 F Pulse Rate 65 Respiratory Rate 18 Blood Pressure 106/66 Pulse Oximetry 99 Intake & Output 10/13/18 10/13/18 10/14/18 06:59 18:59 06:59 Intake Total 1000 / 1000 1900 / 1900 Balance 1000 / 1000 1900 / 1900 Intake: IV 1000 / 1000 1900 / 1900 NS Inj 1,000 ML @ 100 mls/hr IV 1000 / 1000 1900 / 1900 .CONT .Q10H [facility] Rx#:[id number] Other: Date of Last Bowel Movement 10/11/18 10/11/18 - Constitutional no acute distress, chronically ill appearing, cooperative - Routine HEENT Exam Head: Present: normocephalic Eye: Present: conjunctival icterus - Routine Neck Exam Present: supple - Routine Respiratory Exam Present: CTA bilaterally. Absent: accessory muscle use - Routine Cardiovascular Exam Present: RRR. Absent: tachycardia - Routine Abdominal Exam Present: soft, normoactive bowel sounds, tenderness. Absent: distended, organomegaly - Routine Skin Exam Present: dry, warm - Routine Neurological Exam Present: alert, oriented X3 Results - Labs CBC & Chem 7: 10/13/18 07:14 10/13/18 07:14 Laboratory Results - last 24 hr 10/12/18 10/12/18 10/12/18 14:00 21:00 21:00 WBC RBC Hgb Hct MCV MCH MCHC RDW Plt Count MPV Prelim Diff (Auto) WBC Differential Seg Neuts % (Manual) Lymphocytes % (Manual) Monocytes % (Manual) Abs Neuts (Manual) Differential Comment Platelet Estimate Platelet Morphology Target Cells Ovalocytes Sodium Potassium Chloride Carbon Dioxide Anion Gap BUN Creatinine Estimated GFR Random Glucose Calcium Iron 36 L TIBC 456 H % Saturation 7.9 L Ferritin 24 Total Bilirubin Direct Bilirubin Indirect Bilirubin AST ALT Alkaline Phosphatase Total Protein Albumin Tumor Marker AFP 1.9 Urine Color Kimmy Urine Clarity Hazy H Urine pH 6.0 Ur Specific [place] 1.017 Urine Protein 100 H Urine Glucose (UA) Negative Urine Ketones Trace H Urine Occult Blood Large H Urine Nitrate Positive H Urine Bilirubin Moderate H Urine Ictotest Positive H Urine Urobilinogen 0.2 Ur Leukocyte Esterase Trace H Urine RBC 17 H Urine WBC 9 H Ur Squamous Epith Cells 12 Amorphous Sediment Occasional H Urine Bacteria Many H Urine Mucus Many H Micro UA Comment Culture indicated Urine Culture Comments Culture indicated Hepatitis A IgM Ab Reactive H Hep Bs Antigen Nonreactive Hep B Core IgM Ab Nonreactive Hep C IgG Ab Reactive H 10/13/18 10/13/18 10/13/18 06:45 07:14 07:14 WBC 5.4 RBC 3.99 L Hgb 8.4 L Hct 25.3 L MCV 63.3 L MCH 20.9 L MCHC 33.1 RDW 20.8 H Plt Count 328 MPV 8.8 Prelim Diff (Auto) Manual diff required WBC Differential Manual diff final Seg Neuts % (Manual) 61 Lymphocytes % (Manual) 32 Monocytes % (Manual) 7 Abs Neuts (Manual) 3.3 Differential Comment . Platelet Estimate Normal Platelet Morphology Normal Target Cells 1+ H Ovalocytes 1+ H Sodium 138 Potassium 3.4 L Chloride 105 Carbon Dioxide 26.0 Anion Gap 7 BUN 7 Creatinine 0.59 Estimated GFR Greater than 89 Random Glucose 87 Calcium 7.9 L Iron TIBC % Saturation Ferritin Total Bilirubin 4.0 H Direct Bilirubin 3.2 H Indirect Bilirubin 0.8 AST 252 H ALT 606 H Alkaline Phosphatase 419 H Total Protein 6.9 D Albumin 2.4 L D Tumor Marker AFP Urine Color Urine Clarity Urine pH Ur Specific [place] Urine Protein Urine Glucose (UA) Urine Ketones Urine Occult Blood Urine Nitrate Urine Bilirubin Urine Ictotest Urine Urobilinogen Ur Leukocyte Esterase Urine RBC Urine WBC Ur Squamous Epith Cells Amorphous Sediment Urine Bacteria Urine Mucus Micro UA Comment Urine Culture Comments Hepatitis A IgM Ab Hep Bs Antigen Hep B Core IgM Ab Hep C IgG Ab Microbiology 10/12/18 14:00 Clean Catch Urine Urine Culture - Preliminary gram negative rods - Imaging Impressions Cholangiopancreatography MRI 10/13/18 17:25 CONCLUSION: 1. Abnormal appearance to the gallbladder fossa with a contracted gallbladder and significant pericholecystic fluid which tracks towards the falciform ligament. The common bile duct is normal dimension. No intraluminal filling defects seen. The findings do suggest acute cholecystitis. 2. No dilation of the visualized portions of the pancreatic duct. Assessment and Plan (1) Elevated liver function tests Status: Acute Code(s): R94.5 - Abnormal results of liver function studies - Plan Patient is a 38-year-old female with past medical history of IV drug use. Surgical history includes x3. Patient presented to [facility] emergency room with complaint of epigastric burning with associated nausea. Patient states onset 4 days. Patient denies fever or chills. Upon consultation, patient noted to report frequent nausea and vomiting over the last 4 days. States urine dark tea colored. Patient endorses alcohol use socially, 2-3 cigarettes daily. She does endorse IV drug use; stating she uses cocaine, methamphetamines and heroin 3-4 times weekly and has been doing so over the last 3-4 years. Patient also endorses use of marijuana daily. Our service has been consulted to evaluate patient for epigastric pain in the presence of transaminitis. Transaminitis with epigastric pain-rule out hepatitis, hepatic ischemia 4-day onset of epigastric pain patient describes as sharp and constant. Reports associated nausea with dark tea colored urine. Denies radiation of pain. Denies alleviating or aggravating factors. Patient does endorse current IV drug use. -Total bilirubin 6.1 AST 516 ALT 1052 alk phos 43 lipase 128 -WBC 8.4 hemoglobin 9.5 hematocrit 30.0 10/13/2018 Transaminitis-improving, total bilirubin 4.0 AST 252 ALT 606 alk phos 419 Acute hepatitis A-hepatitis panel IgM antibody hepatitis a reactive-expected resolution of same Chronic hepatitis C-treatment naive-hepatitis panel IgG antibody hepatitis C reactive-will require outpatient evaluation for treatment Acute cholecystitis-MRCP revealed :Abnormal appearance to the gallbladder fossa with a contracted gallbladder and significant pericholecystic fluid which tracks towards the falciform ligament. The common bile duct is normal dimension. No intraluminal filling defects seen. The findings do suggest acute cholecystitis. No dilation of the visualized portions of the pancreatic duct. Plan -N.p.o. -Surgical consult-for laparoscopic cholecystectomy -Isolation as per protocol for acute hepatitis A -Monitor labs -Analgesics and antiemetics as per attending -Avoid hepatotoxins -PPI -Liver immunology pending -Supportive care -Further recommendations to follow This patient has been seen by myself and and this note is written on his behalf - Attending Attestation Dr. Rogel
--- NOTE | 2018-10-13 23:02 | P.PNVS ---
Subjective Subjective/Hospital Course: 38-year-old female presents with nausea vomiting abdominal pain and jaundice. Further workup reveals acute hepatitis a and chronic hepatitis C markers. Ultrasound of the gallbladder does not reveal any abnormalities except collapsed chronically contracted gallbladder Physical exam reveals abdomen to be soft with active bowel sounds diffusely tender which is common with hepatitis due to the stretching of the Erin's capsule. At this point patient's no indication for any surgical intervention Thank you very much for your referral J Objective Vital Signs / I&O: Vital Signs 10/12/18 23:51 10/13/18 04:00 10/13/18 07:28 Temperature 99.3 F 98.8 F 96.8 F L Pulse Rate 82 77 70 Respiratory Rate 18 16 18 Blood Pressure 118/73 112/75 101/62 Pulse Oximetry 99 99 97 10/13/18 08:00 10/13/18 11:27 10/13/18 17:11 Temperature 98.5 F 98.6 F Pulse Rate 73 65 Respiratory Rate 14 18 18 Blood Pressure 94/69 L 106/66 Pulse Oximetry 96 99 10/13/18 20:00 Temperature 98.1 F Pulse Rate 66 Respiratory Rate 18 Blood Pressure 106/57 L Pulse Oximetry 100 Intake & Output 10/13/18 10/13/18 10/14/18 06:59 18:59 06:59 Intake Total 1000 / 1000 1900 / 1900 Balance 1000 / 1000 1900 / 1900 Intake: IV 1000 / 1000 1900 / 1900 NS Inj 1,000 ML @ 100 mls/hr IV 1000 / 1000 1900 / 1900 .CONT .[facility] Rx#:[id number] Other: Date of Last Bowel Movement 10/11/18 10/11/18 Laboratory Results - last 24 hr 10/12/18 10/12/18 10/13/18 14:00 21:00 06:45 WBC RBC Hgb Hct MCV MCH MCHC RDW Plt Count MPV Prelim Diff (Auto) WBC Differential Seg Neuts % (Manual) Lymphocytes % (Manual) Monocytes % (Manual) Abs Neuts (Manual) Differential Comment Platelet Estimate Platelet Morphology Target Cells Ovalocytes Sodium Potassium Chloride Carbon Dioxide Anion Gap BUN Creatinine Estimated GFR Random Glucose Calcium Total Bilirubin 4.0 H Direct Bilirubin 3.2 H Indirect Bilirubin 0.8 AST 252 H ALT 606 H Alkaline Phosphatase 419 H Total Protein 6.9 D Albumin 2.4 L D Urine Color Kimmy Urine Clarity Hazy H Urine pH 6.0 Ur Specific [place] 1.017 Urine Protein 100 H Urine Glucose (UA) Negative Urine Ketones Trace H Urine Occult Blood Large H Urine Nitrate Positive H Urine Bilirubin Moderate H Urine Ictotest Positive H Urine Urobilinogen 0.2 Ur Leukocyte Esterase Trace H Urine RBC 17 H Urine WBC 9 H Ur Squamous Epith Cells 12 Amorphous Sediment Occasional H Urine Bacteria Many H Urine Mucus Many H Micro UA Comment Culture indicated Urine Culture Comments Culture indicated Hepatitis A IgM Ab Reactive H Hep Bs Antigen Nonreactive Hep B Core IgM Ab Nonreactive Hep C IgG Ab Reactive H 10/13/18 10/13/18 07:14 07:14 WBC 5.4 RBC 3.99 L Hgb 8.4 L Hct 25.3 L MCV 63.3 L MCH 20.9 L MCHC 33.1 RDW 20.8 H Plt Count 328 MPV 8.8 Prelim Diff (Auto) Manual diff required WBC Differential Manual diff final Seg Neuts % (Manual) 61 Lymphocytes % (Manual) 32 Monocytes % (Manual) 7 Abs Neuts (Manual) 3.3 Differential Comment . Platelet Estimate Normal Platelet Morphology Normal Target Cells 1+ H Ovalocytes 1+ H Sodium 138 Potassium 3.4 L Chloride 105 Carbon Dioxide 26.0 Anion Gap 7 BUN 7 Creatinine 0.59 Estimated GFR Greater than 89 Random Glucose 87 Calcium 7.9 L Total Bilirubin Direct Bilirubin Indirect Bilirubin AST ALT Alkaline Phosphatase Total Protein Albumin Urine Color Urine Clarity Urine pH Ur Specific [place] Urine Protein Urine Glucose (UA) Urine Ketones Urine Occult Blood Urine Nitrate Urine Bilirubin Urine Ictotest Urine Urobilinogen Ur Leukocyte Esterase Urine RBC Urine WBC Ur Squamous Epith Cells Amorphous Sediment Urine Bacteria Urine Mucus Micro UA Comment Urine Culture Comments Hepatitis A IgM Ab Hep Bs Antigen Hep B Core IgM Ab Hep C IgG Ab Microbiology 10/12/18 14:00 Urine Culture - Preliminary Clean Catch Urine gram negative rods Impressions Chest X-Ray 10/12/18 10:20 CONCLUSION: The lungs are clear. Gallbladder Ultrasound 10/12/18 10:20 CONCLUSION: 1. Nonobstructing renal calculus on the right. 2. No acute abnormality. In particular, the gallbladder is decompressed. Cholangiopancreatography MRI 10/13/18 17:25 CONCLUSION: 1. Abnormal appearance to the gallbladder fossa with a contracted gallbladder and significant pericholecystic fluid which tracks towards the falciform ligament. The common bile duct is normal dimension. No intraluminal filling defects seen. The findings do suggest acute cholecystitis. 2. No dilation of the visualized portions of the pancreatic duct.
[2018-10-14] MEDS: Morphine Inj 4 MG/ML Vial IV.PUSH PRN ×4 (04:33→20:39)
[2018-10-14] MEDS: Pantoprazole Sodium 20 MG DR Tablet PO SCH (09:25)
[2018-10-14] MEDS: Senna/Docusate Sodium 8.6/50 MG Tablet PO SCH ×2 (09:26→20:39)
[2018-10-14] MEDS: Sod Chloride 0.9% Inj 1,000 ML IV.CONT SCH ×2 (09:26→17:48)
--- NOTE | 2018-10-14 09:48 | P.PNGI ---
Subjective Interval history: Patient laying in bed Stating that she has abdominal pain wanting her pain medicine No reports of nausea vomiting overnight No blood in the stool <Angel Oakley - Last Filed: 10/14/18 09:39> Physical Exam Vital signs: Vital Signs 10/13/18 11:27 10/13/18 17:11 10/13/18 20:00 Temperature 98.5 F 98.6 F 98.1 F Pulse Rate 73 65 66 Respiratory Rate 18 18 18 Blood Pressure 94/69 L 106/66 106/57 L Pulse Oximetry 96 99 100 10/13/18 23:49 10/14/18 04:20 10/14/18 07:45 Temperature 99.2 F 99.3 F Pulse Rate 75 Respiratory Rate 16 22 Blood Pressure 103/66 98/65 L Pulse Oximetry 99 95 95 10/14/18 08:00 Temperature 99.0 F Pulse Rate 66 Respiratory Rate 16 Blood Pressure 106/64 Pulse Oximetry 98 Intake & Output 10/13/18 10/14/18 10/14/18 18:59 06:59 18:59 Intake Total 1900 / 1900 1000 / 1000 1000 / 1000 Balance 1900 / 1900 1000 / 1000 1000 / 1000 Intake: IV 1900 / 1900 1000 / 1000 1000 / 1000 NS Inj 1,000 ML @ 100 mls/hr IV 1900 / 1900 1000 / 1000 1000 / 1000 .CONT .Q10H [facility] Rx#:[id number] Other: Date of Last Bowel Movement 10/11/18 10/12/18 - Constitutional no acute distress - Routine HEENT Exam Head: Present: normocephalic - Routine Neck Exam Present: supple - Routine Respiratory Exam Present: CTA bilaterally - Routine Cardiovascular Exam Present: RRR, S1, S2 - Routine Abdominal Exam Present: soft, normoactive bowel sounds. Absent: tenderness, distended - Routine Extremities Exam Present: pulses intact - Routine Skin Exam Present: intact, jaundice - Routine Neurological Exam Present: alert, oriented X3 <Angel Oakley - Last Filed: 10/14/18 09:39> Vital signs: Vital Signs 10/13/18 17:11 10/13/18 20:00 10/13/18 23:49 Temperature 98.6 F 98.1 F 99.2 F Pulse Rate 65 66 Respiratory Rate 18 18 16 Blood Pressure 106/66 106/57 L 103/66 Pulse Oximetry 99 100 99 10/14/18 04:20 10/14/18 07:45 10/14/18 08:00 Temperature 99.3 F 99.0 F Pulse Rate 75 66 Respiratory Rate 22 16 Blood Pressure 98/65 L 106/64 Pulse Oximetry 95 95 100 10/14/18 11:29 Temperature 99.4 F Pulse Rate 65 Respiratory Rate 18 Blood Pressure 112/66 Pulse Oximetry 100 Intake & Output 10/13/18 10/14/18 10/14/18 18:59 06:59 18:59 Intake Total 1900 / 1900 1000 / 1000 1000 / 1000 Balance 1900 / 1900 1000 / 1000 1000 / 1000 Intake: IV 1900 / 1900 1000 / 1000 1000 / 1000 NS Inj 1,000 ML @ 100 mls/hr IV 1900 / 1900 1000 / 1000 1000 / 1000 .CONT .Q10H [facility] Rx#:[id number] Other: Date of Last Bowel Movement 10/11/18 10/12/18 <Collin Mckoy - Last Filed: 10/14/18 13:37> Results - Labs CBC & Chem 7: 10/13/18 07:14 10/13/18 07:14 Laboratory Results - last 24 hr 10/12/18 14:00 Urine Color Kimmy Urine Clarity Hazy H Urine pH 6.0 Ur Specific Seminary 1.017 Urine Protein 100 H Urine Glucose (UA) Negative Urine Ketones Trace H Urine Occult Blood Large H Urine Nitrate Positive H Urine Bilirubin Moderate H Urine Ictotest Positive H Urine Urobilinogen 0.2 Ur Leukocyte Esterase Trace H Urine RBC 17 H Urine WBC 9 H Ur Squamous Epith Cells 12 Amorphous Sediment Occasional H Urine Bacteria Many H Urine Mucus Many H Micro UA Comment Culture indicated Urine Culture Comments Culture indicated Microbiology 10/12/18 14:00 Clean Catch Urine Urine Culture - Preliminary gram negative rods - Imaging Impressions Cholangiopancreatography MRI 10/13/18 17:25 CONCLUSION: 1. Abnormal appearance to the gallbladder fossa with a contracted gallbladder and significant pericholecystic fluid which tracks towards the falciform ligament. The common bile duct is normal dimension. No intraluminal filling defects seen. The findings do suggest acute cholecystitis. 2. No dilation of the visualized portions of the pancreatic duct. <Angel Oakley - Last Filed: 10/14/18 09:39> - Labs CBC & Chem 7: 10/13/18 07:14 10/13/18 07:14 Laboratory Results - last 24 hr 10/12/18 14:00 Urine Color Kimmy Urine Clarity Hazy H Urine pH 6.0 Ur Specific Seminary 1.017 Urine Protein 100 H Urine Glucose (UA) Negative Urine Ketones Trace H Urine Occult Blood Large H Urine Nitrate Positive H Urine Bilirubin Moderate H Urine Ictotest Positive H Urine Urobilinogen 0.2 Ur Leukocyte Esterase Trace H Urine RBC 17 H Urine WBC 9 H Ur Squamous Epith Cells 12 Amorphous Sediment Occasional H Urine Bacteria Many H Urine Mucus Many H Micro UA Comment Culture indicated Urine Culture Comments Culture indicated Microbiology 10/12/18 14:00 Clean Catch Urine Urine Culture - Final Escherichia coli <Collin Mckoy - Last Filed: 10/14/18 13:37> Assessment and Plan (1) Elevated liver function tests Status: Acute Code(s): R94.5 - Abnormal results of liver function studies (2) Hepatitis A Status: Acute Code(s): B15.9 - Hepatitis A without hepatic coma (3) Nausea & vomiting Status: Acute Code(s): R11.2 - Nausea with vomiting, unspecified (4) Hyperbilirubinemia Status: Acute Code(s): E80.6 - Other disorders of bilirubin metabolism (5) Microcytic anemia Status: Acute Code(s): D50.9 - Iron deficiency anemia, unspecified - Plan Patient is a 38-year-old female with past medical history of IV drug use. Surgical history includes x3. Patient presented to [facility] emergency room with complaint of epigastric burning with associated nausea. Patient states onset 4 days. Patient denies fever or chills. Upon consultation, patient noted to report frequent nausea and vomiting over the last 4 days. States urine dark tea colored. Patient endorses alcohol use socially, 2-3 cigarettes daily. She does endorse IV drug use; stating she uses cocaine, methamphetamines and heroin 3-4 times weekly and has been doing so over the last 3-4 years. Patient also endorses use of marijuana daily. Our service has been consulted to evaluate patient for epigastric pain in the presence of transaminitis. Transaminitis with epigastric pain-rule out hepatitis, hepatic ischemia 4-day onset of epigastric pain patient describes as sharp and constant. Reports associated nausea with dark tea colored urine. Denies radiation of pain. Denies alleviating or aggravating factors. Patient does endorse current IV drug use. -Total bilirubin 6.1 AST 516 ALT 1052 alk phos 43 lipase 128 -WBC 8.4 hemoglobin 9.5 hematocrit 30.0 10/13/2018 Transaminitis-improving, total bilirubin 4.0 AST 252 ALT 606 alk phos 419 Acute hepatitis A-hepatitis panel IgM antibody hepatitis a reactive-expected resolution of same Chronic hepatitis C-treatment naive-hepatitis panel IgG antibody hepatitis C reactive-will require outpatient evaluation for treatment Acute cholecystitis-MRCP revealed :Abnormal appearance to the gallbladder fossa with a contracted gallbladder and significant pericholecystic fluid which tracks towards the falciform ligament. The common bile duct is normal dimension. No intraluminal filling defects seen. The findings do suggest acute cholecystitis. No dilation of the visualized portions of the pancreatic duct. 10/14/2018 Assessment Acute hepatitis A -patient liver enzymes are trending down indicating patient is recuperating slowly from the acute infection of hepatitis A AST 252 ALT 606 alkaline phosphatase 419. bilirubin of 4 markedly decreased from 6.1 yesterday. Transaminitis hyperbilirubinemia Chronic hepatitis C -patient does not currently receive any medication for this Acute cholecystitis -based on the MRCP of contracted gallbladder surgery does not think there is an acute indication of surgical intervention at this time Microcytic anemia -hemoglobin 8.4 hematocrit 25.3 platelets of 328 Plan -May start clear liquid diet today -Surgical following-no indications for acute surgical intervention -Isolation as per protocol for acute hepatitis A -Observe proper hygiene educated patient on hygiene and sanitation and disease prevention -Monitor labs LFTs -Continue IV hydration and electrolytes corrections per medical team -Analgesics and antiemetics as per attending -Avoid hepatotoxins -PPI -Liver immunology pending -Supportive care -Further recommendations to follow This patient has been seen by myself and and this note is written on his behalf - Attending Attestation DR Araujo <Angel Oakley - Last Filed: 10/14/18 09:39> (1) Elevated liver function tests Status: Acute Code(s): R94.5 - Abnormal results of liver function studies (2) Hepatitis A Status: Acute Code(s): B15.9 - Hepatitis A without hepatic coma (3) Nausea & vomiting Status: Acute Code(s): R11.2 - Nausea with vomiting, unspecified (4) Hyperbilirubinemia Status: Acute Code(s): E80.6 - Other disorders of bilirubin metabolism (5) Microcytic anemia Status: Acute Code(s): D50.9 - Iron deficiency anemia, unspecified - Plan Seen and examined with [employer], resting comfortably. Advance diet as tolerated. <Collin Mckoy - Last Filed: 10/14/18 13:37>
[2018-10-14] MEDS: Enoxaparin Inj 40 MG/0.4 ML Syringe SQ SCH (12:31)
--- NOTE | 2018-10-14 14:03 | P.PNIM ---
Subjective Interval history: Feels tired. Able to eat and tolerates food. No fever ro chills. Still with some abd pain, controlled by meds Physical Exam Vital signs: Vital Signs 10/13/18 17:11 10/13/18 20:00 10/13/18 23:49 Temperature 98.6 F 98.1 F 99.2 F Pulse Rate 65 66 Respiratory Rate 18 18 16 Blood Pressure 106/66 106/57 L 103/66 Pulse Oximetry 99 100 99 10/14/18 04:20 10/14/18 07:45 10/14/18 08:00 Temperature 99.3 F 99.0 F Pulse Rate 75 66 Respiratory Rate 22 16 Blood Pressure 98/65 L 106/64 Pulse Oximetry 95 95 100 10/14/18 11:29 Temperature 99.4 F Pulse Rate 65 Respiratory Rate 18 Blood Pressure 112/66 Pulse Oximetry 100 Intake & Output 10/13/18 10/14/18 10/14/18 18:59 06:59 18:59 Intake Total 1900 / 1900 1000 / 1000 1000 / 1000 Balance 1900 / 1900 1000 / 1000 1000 / 1000 Intake: IV 1900 / 1900 1000 / 1000 1000 / 1000 NS Inj 1,000 ML @ 100 mls/hr IV 1900 / 1900 1000 / 1000 1000 / 1000 .CONT .Q10H [facility] Rx#:[id number] Other: Date of Last Bowel Movement 10/11/18 10/12/18 Narrative: GENERAL: 38 yo female appears weak but not in severe distress. CARDIOVASCULAR: Regular rate and rhythm. RESPIRATORY: No accessory muscle use. Clear to auscultation. Breath sounds equal bilaterally. GASTROINTESTINAL: Abdomen soft, mild epigastric tenderness, nondistended. Hepatic and splenic margins not palpable. MUSCULOSKELETAL: Extremities without clubbing, cyanosis, or edema. No obvious deformities. NEUROLOGICAL: Awake and alert. No obvious cranial nerve deficits. Motor grossly within normal limits. Five out of 5 muscle strength in the arms and legs. Normal speech. PSYCHIATRIC: Appropriate mood and affect; insight and judgment normal. Results Labs CBC & Chem 7: 10/13/18 07:14 10/13/18 07:14 Labs: Microbiology 10/12/18 14:00 Clean Catch Urine Urine Culture - Final Escherichia coli Assessment and Plan (1) Elevated liver function tests: Code(s): R94.5 - Abnormal results of liver function studies Status: Acute (2) Hepatitis A: Code(s): B15.9 - Hepatitis A without hepatic coma Status: Acute (3) Nausea & vomiting: Code(s): R11.2 - Nausea with vomiting, unspecified Status: Acute (4) Hyperbilirubinemia: Code(s): E80.6 - Other disorders of bilirubin metabolism Status: Acute (5) Microcytic anemia: Code(s): D50.9 - Iron deficiency anemia, unspecified Status: Acute Plan 38 yo F with epigastric abd pain , nausea and vomiting unable to keep PO intake Epigastric abd pain , nausea and vomiting unable to keep PO intake Transaminitis , Acute hep A and also h.o Chronic Hep C Acute cholecystitis Active IVDU Counselled regarding IVDU, last use of Heroin 2 days [employer] Advance diet as tolerated Antiemetics as need pain meds as need pantoprazole pain meds as need Consult GI, appreciate recs. MRCP reviewed Patient with acute josiah , consult gen surg seen by Dr Phillips recommends conservative management DVT ppx scd/teds Discussed with the patient, nurse DC plan : DC when improved and cleared by consultants Progress Note: Quality VTE Deep Vein Thrombosis/Pulmonary Embolism Present on Admission: No _ (1) Hepatitis A Qualifiers: Hepatic coma status: (2) Nausea & vomiting Qualifiers: Vomiting type: Vomiting Intractability:
[2018-10-14 15:52] LABS: Smooth Muscle Total Auto Abs Negative (Negative)
[2018-10-15] MEDS: Morphine Inj 4 MG/ML Vial IV.PUSH PRN ×5 (00:38→17:02)
[2018-10-15] MEDS: Sod Chloride 0.9% Inj 1,000 ML IV.CONT SCH ×2 (04:37→13:05)
[2018-10-15] MEDS: Pantoprazole Sodium 20 MG DR Tablet PO SCH (09:06)
[2018-10-15] MEDS: Senna/Docusate Sodium 8.6/50 MG Tablet PO SCH (09:07)
[2018-10-15 10:06] VITALS: O2SAT 98
[2018-10-15 13:04] LABS: Alanine Aminotransferase 336 U/L (10-53); Albumin 2.3 g/dL (3.4-5.0); Anion Gap 6 meq/L (5-15); Aspartate Aminotransferase 148 U/L (15-37); Blood Urea Nitrogen 9 mg/dL (7-18); Calcium 7.7 mg/dL (8.5-10.1); Carbon Dioxide 27.9 meq/L (21.0-32.0); Chloride 105 meq/L (98-107); Glomerular Filtration Rate Greater Than 89 mL/min (>89); Glucose,Random 105 mg/dL (74-106); Potassium 4.4 meq/L (3.5-5.1); Sodium 139 meq/L (136-145)
[2018-10-15 13:15] LABS: Alkaline Phosphatase 647 U/L (45-117)
[2018-10-15] MEDS: Enoxaparin Inj 40 MG/0.4 ML Syringe SQ SCH (13:43)
--- NOTE | 2018-10-15 18:00 | P.DS ---
DS: Providers Date of admission: 10/14/18 12:52 Primary care physician: No Primary Care Physician Consults: 10/12/18 14:59 Consult to Gastroenterology Routine Consulting Provider: Jairon Rogel V Reason for Consultation: epigastric pain , transaminitis Notified:: Office Spoke with:: Amira Date Notified:: 10/12/18 Time Notified:: 15:02 Ordering Provider: ERMA 10/13/18 13:33 Consult to General Surgery Routine Consulting Provider: Antonieta Phillips Merchandise Appraiser:: Antonieta Phillips Reason for Consultation: Acute cholecystitis Notified:: Physician Spoke with:: Date Notified:: 10/13/18 Time Notified:: 13:39 Ordering Provider: JODY Brief History from admission: 38-year-old female with h/o IVDA presents for evaluation of 4 days of severe epigastric, burning and associate nausea. The pain is worse with eating. Patient states that she is feels a burning in her epigastrium which radiates to her chest particularly with burping. She has had minimal p.o. intake over the past 4 days. Patient with nausea and unable to tolerate po intake. No fever or chills. Denies sick contacts, recent antibiotic use, recent surgery/procedure, recent injury and history of similar episodes Denies diarrhea, fever, chills or constipation. DS: Diagnosis Discharge Diagnosis (1) Elevated liver function tests: Status: Acute (2) Hepatitis A: Status: Acute (3) Nausea & vomiting: Status: Acute (4) Hyperbilirubinemia: Status: Acute (5) Microcytic anemia: Status: Acute DS: Summary Patient is a 38 y/o F with a hx of IVDA. She presented to the ED with complaints of abd pain. No fevers or chills prior to or during the hospitalization. She admitted to IV methamphetamine and heroin abuse. Imaging of the abd showed findings concerning for liver disease. Hep A and Hep C were positive. MRCP showed findings consistent with acute cholecystitis. Surgery was consulted however no surgical intervention was recommended. Patient was continued with supportive care and her symptoms have resolved. She is now tolerating a po diet. Her LFTs are downtrending. No fevers or signs of infection. No current abd pain. She says she has been homeless on and off and is going to go home with her boyfriend today. She will follow up for Hep A and C with GI outpatient in the next couple of weeks. She was also given instructions on how to obtain a pcp. She is stable for discharge. She was advised to return to the ED if she starts to have abd pain or if she begins to have fevers and/or chills. Patient was also counseled on her ivda. She says she will stop. Time Spent with Patient Total time spent providing and/or coordinating discharge services: Quality: VTE Deep Vein Thrombosis/Pulmonary Embolism Present on Admission: No Exam Narrative Exam Narrative: No acute distress S1S2 No abd pain, soft, nontender, normal bowel sounds No edema of exts No neuro deficits. Results Labs on day of discharge: Labs from last 24 hours 10/15/18 10/14/18 12:01 21:15 Sodium 139 Potassium 4.4 Chloride 105 Carbon Dioxide 27.9 Anion Gap 6 BUN 9 Creatinine 0.57 Estimated GFR Greater than 89 Random Glucose 105 Calcium 7.7 L Total Bilirubin 1.5 H AST 148 H ALT 336 H Alkaline Phosphatase 647 H Total Protein 7.0 Albumin 2.3 L Stool [id number] Pending Impressions ITS Impressions Chest X-Ray 10/12/18 10:20 CONCLUSION: The lungs are clear. Gallbladder Ultrasound 10/12/18 10:20 CONCLUSION: 1. Nonobstructing renal calculus on the right. 2. No acute abnormality. In particular, the gallbladder is decompressed. Cholangiopancreatography MRI 10/13/18 17:25 CONCLUSION: 1. Abnormal appearance to the gallbladder fossa with a contracted gallbladder and significant pericholecystic fluid which tracks towards the falciform ligament. The common bile duct is normal dimension. No intraluminal filling defects seen. The findings do suggest acute cholecystitis. 2. No dilation of the visualized portions of the pancreatic duct. Discharge Plan Discharge Disposition Patient Disposition: 01 Discharge Home Discharge Condition Condition: Stable Discharge Order Discharge Orders: Discharge Order (Routine); Ordered 10/15/18 Ordered By: Santiago Rodríguez Physicians Team ED Provider: Norma Santos Primary Care Provider: Primary Care Howard,Blanche Attending Provider: Santiago Rodríguez Other Providers: Jairon Rogel Slobodan Rxs /Orders / Referrals /Forms Prescriptions: New pantoprazole [Protonix] 20 mg Tablet,Delayed Release (Dr/Ec) 20 mg PO DAILY Qty: 60 RF: 0 No Action No Known Home Medications RF: 0 Referrals: [facility] [Outside] - See Instructions Jairon Rogel MD [Physician] - See Instructions Primary Care Blanche Lawrence [Primary Care Provider] - See Instructions Discharge Interventions Interventions: Discharge Planning - Case Management Last Done: 10/15/18 14:50 Status ED Status: Left Department
[2018-10-15 18:02] VITALS: BP 106/69; PULSE 68; RESP 16; TEMP 98.1
[2018-10-16 15:51] LABS: Ceruloplasmin 47 mg/dL (18-53)
[2018-10-17 03:50] LABS: DS DNA Ab (Crithidia) NEGATIVE (NEGATIVE)
== END 2018-10-15 18:45 | disposition home or self-care (01) | DRG 445 ==
LOC: NEPE 09:48 → NEDA 09:48 → NEPFCDU 14:23 → N07 10-14 18:39
PROVIDERS: ADMIT Hospitalist; ATTEND Hospitalist
DX: F11.10 Opioid abuse, uncomplicated; Z98.891 History of uterine scar from previous surgery; Z83.3 Family history of diabetes mellitus; K81.0 Acute cholecystitis; F14.90 Cocaine use, unspecified, uncomplicated; F15.10 Other stimulant abuse, uncomplicated; B15.9 Hepatitis A without hepatic coma; B18.2 Chronic viral hepatitis C; F12.90 Cannabis use, unspecified, uncomplicated; D50.9 Iron deficiency anemia, unspecified; F17.210 Nicotine dependence, cigarettes, uncomplicated; R10.13 Epigastric pain
CPT/HCPCS: 71010; 71045; 74181; 76377; 76705; 80048; 80053; 80074; 80076; 81001; 82103; 82105; 82390; 82728; 83520; 83540; 83550; 83690; 83735; 84703; 85025; 86038; 86039; 86225; 86235; 86255; 86256; 86431; 87077; 87086; 87186; 90761; 90774; 90775; 90784; 93005; 96361; 96374; 96375; 96376; 99285; C8952; C9113; G0378; J1650; J2270; J2405; J7030